=== PATIENT | female | born 1990 | race Caucasian/White ===

== ENCOUNTER 2017-02-01 21:45 | Inpatient (IN) | payer OTHER ==
[~2017-02-01] VITALS: Ht 162.6 cm; Wt 72.6 kg
[2017-02-01 14:06] VITALS: BP 111/67
[2017-02-01 15:05] LABS: BILIRUBIN,URINE NEGATIVE (NEGATIVE); UROBILINOGEN,URINE NORMAL (NEGATIVE)
[2017-02-01 15:07] LABS: BASOPHIL % 0.3 % (0.0-0.2); EOSINOPHIL % 0.4 % (0.0-5.0); HEMATOCRIT 36.7 % (36.0-46.0); HEMOGLOBIN 13.1 g/dL (12.0-15.0); LYMPHOCYTES # 1.9 10^3/uL (1.0-4.8); LYMPHOCYTES % 21.3 % (24.0-44.0); MEAN CELL HGB 32.8 pg (26-34); MEAN CELL HGB CONCENTRATION 35.7 g/dL (33-37); MEAN CORP VOLUME 91.8 fL (78-100); MEAN PLATELET VOLUME 11.3 fL (7.8-11.0); MONOCYTES # 0.6 10^3/uL (0.3-0.8); NEUTROPHIL # 6.3 10^3/uL (1.8-7.7); NEUTROPHILS % 70.7 % (41.0-85.0); RED CELL DISTRIBUTION WIDTH 12.6 % (11.5-14.5); WHITE BLOOD CELL 8.9 10^3/uL (4.5-11.0)
[2017-02-01 15:08] LABS: APPEARANCE,URINE CLEAR (CLEAR); UA COLOR YELLOW (YELLOW)
[~2017-02-01 21:45] MED LIST: PNV1TABL82 PO
[2017-02-02] VITALS (13 sets, daily range): BP systolic 87–121; BP diastolic 36–74
[2017-02-02] MEDS ORDERED: LACTATED RINGERS 1,000 ML ONE ×4 (04:23→23:28)
[2017-02-02] MEDS: LACTATED RINGERS 1,000 ML IV SCH ×2 (06:15→07:13)
[2017-02-02] MEDS ORDERED: LACTATED RINGERS 2,000 ML ONE (07:10)
[2017-02-02] MEDS ORDERED: PITOCIN ONE (07:11)
[2017-02-02] MEDS ORDERED: ZOFRAN ONE (07:11)
[2017-02-02] MEDS ORDERED: METHERGINE ONE (07:12)
[2017-02-02] MEDS ORDERED: ASTRAMORPH-PF ONE (07:12)
[2017-02-02] MEDS ORDERED: VERSED ONE (07:12)
[2017-02-02] MEDS ORDERED: TORADOL ONE ×3 (07:13→21:26)
[2017-02-02] MEDS ORDERED: LEVAQUIN 100 ML IV ONE (07:53)
[2017-02-02] MEDS ORDERED: LACTATED RINGERS 1,000 ML IV SCH (08:27)
[2017-02-02] MEDS ORDERED: PITOCIN 0.02 UNIT in LACTATED RINGERS 1 ML IV SCH ×2 (09:18→13:22)
[2017-02-02] MEDS ORDERED: ZOFRAN ODT SL PRN ×2 (09:30→13:30)
[2017-02-02] MEDS ORDERED: ZOFRAN IV PRN ×2 (09:30→13:30)
[2017-02-02] MEDS ORDERED: DEMEROL IV PRN ×2 (09:30→13:30)
[2017-02-02] MEDS ORDERED: MILK OF MAGNESIA PO PRN ×2 (09:30→13:30)
[2017-02-02] MEDS ORDERED: AMBIEN PO PRN ×2 (09:30→13:30)
[2017-02-02] MEDS ORDERED: PHENERGAN IV PRN ×2 (09:30→13:30)
[2017-02-02] MEDS ORDERED: BENADRYL PO PRN ×2 (09:30→13:30)
[2017-02-02] MEDS ORDERED: GAVISCON ES TABLET CHEW PO PRN ×2 (09:30→13:30)
[2017-02-02] MEDS ORDERED: DILAUDID IV PRN ×2 (09:30→13:30)
[2017-02-02] MEDS ORDERED: NORCO 7.5MG PO PRN ×3 (09:30→13:30)
--- NOTE | 2017-02-02 09:32 | PRM.OPH ---
Immediate Post Op Note Summary of Operation Date: Feb 02, 2017 Time: 09:23 Pre-Operative DX: IUP @ 39 1/7 WKS; BREECH PRESENTATION; PRIMIGRAVIDA Post-OP DX: SAME Anesth.Used: SPINAL Indications: PRIMARY LOW TRANSVERSE SECTION VIA PFANNENSTIEL Physician's Summary: Liveborn male in octavio breech presentation, no nuchal cord, clear- colored fluid/membranes throughout. Baby boy with Apgars of 4, 8, and 9, weight 2862grams (6# 4oz). Normal-appearing placenta. Normal-appearing uterus , tubes bilaterally, ovaries bilaterally. Assistants: Listed Assisting Physicians CHRISTIAN CHAVIRA MD, BERNADETTE INGRAM CATECHIST Anesthesiologist/ULTRASOUND TECHNOLOGIST SONOGRAPHER CHRISTINA ORTEGA CRNA, ERNIE CLAY CRNA Specimen(s) Removed: List Specimen: NONE SENT Estimated Blood Loss: EBL/ESTIMATED BLOOD LOSS: (MIL: 600 Complications: Complications: NONE Assessment & Plan: Update Surgical HX/Problems: (1) Status post primary low transverse section (2) 39 weeks gestation of (3) Octavio breech presentation (4) Primigravida Assessment & Plan: Routine postop/ care. MAIN FOX MD Feb 02, 2017 09:32
[2017-02-02] MEDS ORDERED: DEMEROL ONE (13:08)
[2017-02-02] MEDS ORDERED: MOTRIN PO PRN (13:30)
[2017-02-02] MEDS ORDERED: TORADOL IV SCH (15:00)
[2017-02-02] MEDS: TORADOL IV SCH ×2 (15:00→21:28)
[2017-02-02] MEDS ORDERED: LACTATED RINGERS 1,000 ML IV ONE ×2 (15:35→23:33)
[2017-02-03] MEDS ORDERED: TORADOL ONE (03:11)
[2017-02-03] MEDS: TORADOL IV SCH (03:17)
[2017-02-03] MEDS ORDERED: LEVAQUIN 100 ML IV ONE ×2 (06:16→07:00)
[2017-02-03] MEDS ORDERED: NORCO 7.5MG PO ONE ×4 (06:17→20:11)
[2017-02-03] MEDS: NORCO 7.5MG PO PRN ×3 (06:20→14:03)
[2017-02-03 06:44] LABS: BASOPHIL % 0.2 % (0.0-0.2); EOSINOPHIL % 0.3 % (0.0-5.0); HEMATOCRIT 30.1 % (36.0-46.0); HEMOGLOBIN 10.1 g/dL (12.0-15.0); LYMPHOCYTES # 1.3 10^3/uL (1.0-4.8); LYMPHOCYTES % 14.7 % (24.0-44.0); MEAN CELL HGB 31.7 pg (26-34); MEAN CELL HGB CONCENTRATION 33.6 g/dL (33-37); MEAN CORP VOLUME 94.4 fL (78-100); MEAN PLATELET VOLUME 11.2 fL (7.8-11.0); MONOCYTES # 0.7 10^3/uL (0.3-0.8); MONOCYTES % 7.3 % (5.0-12.0); NEUTROPHILS % 77.3 % (41.0-85.0)
[2017-02-03] MEDS ORDERED: LACTATED RINGERS 1,000 ML IV SCH (08:27)
[2017-02-03] MEDS: PRENATAL VITAMIN TABLET PO SCH (09:00)
[2017-02-03] MEDS ORDERED: PRENATAL VITAMIN TABLET PO SCH (09:00)
[2017-02-03] MEDS ORDERED: PRENATAL VITAMIN TABLET PO ONE (11:58)
[2017-02-03] MEDS ORDERED: IBUP800T PO (13:38)
[2017-02-03] MEDS ORDERED: HYDR-925 PO (13:38)
--- NOTE | 2017-02-03 13:44 | PRM.DC ---
OB Discharge Summary Discharge Summary Discharge Diagnosis: S/P Complications: No Complications Abnormal Lab Results Laboratory Tests Test 02/01/17 14:30 02/03/17 06:00 White Blood Count 8.910^3/uL 9.010^3/uL Red Blood Count 4.0010^6/uL 3.1910^6/uL Hemoglobin 13.1g/dL 10.1g/dL Hematocrit 36.7% 30.1% Mean Corpuscular Volume 91.8fL 94.4fL Mean Corpuscular Hemoglobin 32.8pg 31.7pg Mean Corpuscular Hemoglobin Concent 35.7g/dL 33.6g/dL Red Cell Distribution Width 12.6% 13.0% Platelet Count 06530^3/uL 55957^3/uL Mean Platelet Volume 11.3fL 11.2fL Neutrophils (%) (Auto) 70.7% 77.3% Lymphocytes (%) (Auto) 21.3% 14.7% Monocytes (%) (Auto) 7.0% 7.3% Neutrophils # (Auto) 6.310^3/uL 7.010^3/uL Lymphocytes # (Auto) 1.910^3/uL 1.310^3/uL Monocytes # (Auto) 0.610^3/uL 0.710^3/uL Absolute Immature Granulocyte (auto 0.0310^3 u/L 0.0210^3 u/L Eosinophils % 0.4% 0.3% Basophils % 0.3% 0.2% Basophils # 0.010^3/uL 0.010^3/uL Eosinophil Count 0.010^3/uL 0.010^3/uL Urine Collection Type Unknown Urine Color Yellow Urine Appearance Clear Urine Bilirubin NegativeMG/DL Urine Ketones 5 mg/dl Urine Specific [place] 1.015 Urine pH 6 Urine Protein Negative Urine Urobilinogen Normal Urine Nitrate Negative Urine Leukocyte Esterase Negative Urine Blood Negative Urine Glucose Normal Ketones Negative Percent Immature Gran (Cell Imm) 0.30% 0.20% HIV-1 Antibody Non-reactive Medications: Other (Rx Waterproof 7.5/325 #60 no refills-written on triplicate prescription pad, plus Rx Motrin 800mg's #30 no refills, written on normal Rx pad) Discharge Disposition: Stable Discharge Instructions: Pelvic Rest x 6 Weeks, Clinic F/U 1-2 Weeks, Regular Diet, Regular Activity, Meds as Prescribed, Call MD for Problems Additional Comments This was a midwifery patient of Rosy Sawyerdutch in [place]. The patient has been persistent breech for several weeks. MAIN FOX MD Feb 03, 2017 13:44
[2017-02-03] MEDS ORDERED: MOTRIN ONE ×2 (13:57→15:51)
[2017-02-03] MEDS: MOTRIN PO PRN (16:00)
[2017-02-04] MEDS ORDERED: NORCO 7.5MG PO ONE (00:01)
[2017-02-04] MEDS: MOTRIN PO PRN ×2 (00:03→09:35)
[2017-02-04] MEDS: NORCO 7.5MG PO PRN (00:03)
[2017-02-04] MEDS: PRENATAL VITAMIN TABLET PO SCH (09:00)
[2017-02-04] MEDS ORDERED: MOTRIN ONE ×2 (09:32)
[2017-02-04 11:14] VITALS: BP 112/60
== END 2017-02-04 12:55 | disposition home or self-care (01) | DRG 766 ==
LOC: UNDOADMIN 21:45 → LND 21:45
PROVIDERS: ADMIT Hospitalist; ATTEND Hospitalist
PROC: 10D00Z1 Extraction of Products of Conception, Low, Open Approach (ICD-10-PCS; principal; 2017-02-02 08:00)
DX: O32.1XX0 Maternal care for breech presentation, not applicable or unspecified (principal); Z37.0 Single live birth; Z3A.39 39 weeks gestation of pregnancy
CPT/HCPCS: 36415; 76825; 81002; 85025; 86900; A4338; J1885; J1956; J2175; J2210; J2250; J2405; J2590; J7120; J2274